=== PATIENT | female | born 1955 | race Caucasian/White ===

== ENCOUNTER 2019-07-14 09:26 | Outpatient (CLI) | payer OTHER, SELFPAY ==
--- NOTE | ~2019-07-14 | MM_ITS ---
EXAMINATION: MM screening albert RT w tone HISTORY: Screening mammogram TECHNIQUE: Craniocaudal and mediolateral oblique 3-D tomosynthesis images were obtained and synthetic 2-D images were generated. CAD analysis was submitted and interpreted. COMPARISON: 02/21/2018 right digital screening mammogram 02/14/2017 diagnostic right mammogram 02/11/2017 right digital screening mammogram BREAST PARENCHYMAL COMPOSITION: There are scattered areas of fibroglandular density. FINDINGS: Possible new 3 mm mass in inner right breast (craniocaudal Tomosynthesis image 28/84). Diag nostic right mammogram is recommended, with ultrasound if required. Otherwise there is no evidence of suspicious mass, calcification, or architectural distortion to sugg est malignancy in either breast. There has been no other suspicious interval change. IMPRESSION: 1. Possible new 3 mm mass in the inner aspect of the right breast 2. Diagnostic right mammogram is recommended, with ultrasound if required. BI-RADS Category 0: Incomplete: Needs additional imaging evaluation. Reviewed, dictated and finalized at location A. STITCHER
== END 2019-07-14 09:27 | disposition home or self-care (01) ==
LOC: ANHIMG 09:31
PROVIDERS: Visit Provider Obstetrics & Gynecology
DX: Z12.31 Encounter for screening mammogram for malignant neoplasm of breast (principal); R92.8 Other abnormal and inconclusive findings on diagnostic imaging of breast
CPT/HCPCS: 77063; 77067

== ENCOUNTER 2019-08-06 13:16 | Outpatient (CLI) | payer OTHER, SELFPAY ==
--- NOTE | ~2019-08-06 | MMUS_ITS ---
EXAMINATION: MM diagnostic mammo unilat RT, US breast RT limited HISTORY: Follow-up right breast asymmetry TECHNIQUE: Additional 3-D tomosynthesis images of the right breast were performed and synthetic 2-D i mages were generated. CAD analysis was submitted and interpreted. High resolution right breast ultras ound was performed. COMPARISON: Comparison to multiple prior studies sequentially, with oldest reviewed study dated 01/18. FINDINGS: MAMMOGRAPHIC FINDINGS: Breast composed of scattered areas of fibroglandular density. The right breast is stable. No suspicio us masses, calcifications or architectural distortion are identified in the right breast to suggest m alignancy. ULTRASOUND: High-resolution Limited right breast ultrasound: At 4:00, 4 cm from the nipple, there is a small 4 mm intramammary lymph node corresponding to the asy mmetry seen on mammogram. No suspicious masses to suggest malignancy. IMPRESSION: 1. No evidence for malignancy in the right breast. Benign findings. 2. Routine yearly screening mammogram and regular clinical breast examination are recommended. BI-RADS Category 2: Benign finding(s). Reviewed, dictated and finalized at location A. T SECURITY OFFICER IMPRESSION: 1. No evidence for malignancy in the right breast. Benign findings. 2. Routine yearly screening mammogram and regular clinical breast examination a re recommended. BI-RADS Category 2: Benign finding(s).
== END 2019-08-06 13:17 | disposition home or self-care (01) ==
LOC: ANHIMG 13:18
PROVIDERS: Visit Provider Obstetrics & Gynecology
DX: R92.8 Other abnormal and inconclusive findings on diagnostic imaging of breast (principal)
CPT/HCPCS: 76642; 77065

== ENCOUNTER 2020-09-19 09:20 | Outpatient (CLI) | payer OTHER, SELFPAY ==
--- NOTE | ~2020-09-19 | MM_ITS ---
EXAMINATION: MM screening albert RT w tone HISTORY: Screening right mammogram, history of left mastectomy TECHNIQUE: Craniocaudal and mediolateral oblique 3-D tomosynthesis images were obtained and synthetic 2-D images were generated. CAD analysis was submitted and interpreted. COMPARISON: 08/06/2019, 07/14/2019, 02/21/2018 BREAST PARENCHYMAL COMPOSITION: The breast is almost entirely fatty. FINDINGS: There is no evidence of suspicious mass, calcification, or architectural distortion to sugg est malignancy in either breast. There has been no suspicious interval change. IMPRESSION: 1. No mammographic evidence of malignancy. 2. Recommend routine screening mammography in one year. BI-RADS Category 1: Negative Reviewed, dictated and finalized at location A.
== END 2020-09-19 09:21 | disposition home or self-care (01) ==
LOC: ANHIMG 09:24
PROVIDERS: PCP Internal Medicine; Visit Provider Obstetrics & Gynecology
DX: Z12.31 Encounter for screening mammogram for malignant neoplasm of breast (principal)
CPT/HCPCS: 77063; 77067

== ENCOUNTER 2021-07-24 09:53 | Outpatient (CLI) | payer MEDICARE, SELFPAY ==
[2021-07-24 11:18] LABS: Anion Gap 11 mmol/L (8-16); Blood Urea Nitrogen 19 mg/dL (7-17); Calcium 9.4 mg/dL (8.4-10.2); Carbon Dioxide 22 mmol/L (22-30); Chloride 107 mmol/L (98-107); Estimated Glomerular Filt Rate > 60; Glucose 110 mg/dL (65-110); Potassium 3.6 mmol/L (3.4-5.0); Sodium 140 mmol/L (137-145)
== END 2021-07-24 09:54 | disposition home or self-care (01) ==
LOC: ANHSURGERY 10:00
PROVIDERS: Anesthesiology; PCP Internal Medicine; Visit Provider Urology
DX: N39.3 Stress incontinence (female) (male) (principal); Z79.899 Other long term (current) drug therapy; Z01.818 Encounter for other preprocedural examination
CPT/HCPCS: 36415; 80048; 87086

== ENCOUNTER 2021-07-28 00:45 | Day surgery (SDC) | payer MEDICARE, SELFPAY ==
[2021-07-19 09:18] VITALS: BMI 32.4
--- NOTE | 2021-07-19 09:28 | PC.NURSE ---
Report to the Outpatient Waiting Room, entrance under the green pavilion located off [facility], at time 6:15 on date 07/28/21. OR Time: 8:15. - You and your visitor will be asked a series of questions to screen for COVID 19 for your protection. - A mask is required within the hospital. One visitor will be allowed to accompany the patient into the hospital. Patients visitor will be instructed to remain with patient at all times or leave the building. We will allow the visitor to come back to the postoperative area when patient is ready. Preoperative COVID Testing Requirements: No COVID Test needed if: (proof is required; if not received patient will have Rapid Test prior to entry) - Patient has received COVID Vaccine at least 14 days prior to procedure date or - Patient has positive COVID test result within last 90 days of surgery date. COVID Test needed if above criteria is not met Patients may have clear liquids (water, carbonated beverages, clear teas, apple juice) until 3 hours prior to surgery (5:15) with a maximum of 20 ounces. - No food from midnight until time of surgery Take the following medications with a SIP of water the morning of surgery: LEVOTHYROXINE, TAMOXIFEN Medications to discontinue per physician: VITAMINS/SUPPLEMENTS Date to take last dose: 07/24/21 Please no make-up, nail congolese, hairspray, perfume, deodorant, or body powder the day of surgery. No jewelry (including any body piercings) or valuables the day of surgery, leave them at home. Please take a shower or bath the night before, or the morning of, surgery with an antibacterial soap. Wear comfortable, loose fitting clothing. - Jewelry must be removed prior to entering the operating room. Rings and piercings that are not removed may be cut off. - The hospital will not accept responsibility for valuables. - Please leave all valuables, including medications, at home the day of surgery. If you are going home after surgery, a licensed mixer driver must drive you home. - NO public transportation without another adult. - We recommend that an adult stay with you for 24 hours following discharge. - We also recommend that you do not drive, make important decision, drink alcoholic beverages, or take any drugs that were not prescribed by your health care provider for at least 24 hours after your discharge time. Follow any additional instructions given to you from your surgeon. Telephone instructions given to SANTOSH HCASE and asked if any additional questions and then verbalized understanding. Patient advised to call surgeon office or pre surgery nurse liaison [phone] if any additional questions.
--- NOTE | 2021-07-23 19:14 | P.HP_ITS ---
H&P: HPI History of Present Illness Date/Time: 07/23/21 19:14 66 yo with RORO Chief Complaint: RORO Review of Systems Review of Systems: All systems reviewed & are unremarkable except as noted in HPI and below FOR[facility], [facility] Past Medical History Medical History Acid reflux Allergies Arthritis Breast cancer 2010, left breast Hypertension IBS (irritable bowel syndrome) Thyroid disorder Surgical History Surgical History H/O hand surgery S/P breast reconstruction left breast S/P foot surgery S/P knee replacement S/P mastectomy left breast S/P reduction mammoplasty left breast Family History Family History Grandparent Family history of malignant melanoma Mother Family history of malignant neoplasm of breast in first degree relative Father Family history of congestive heart failure Other Family history of lung cancer Social History Social History Smoking status: Never smoker Alcohol intake: current Drinks per week: 4 Substance use: never Substance use type: does not use Spiritual care concerns: No Meds Home Medications and Allergies Home Medications Medication Instructions Recorded Confirmed Type atorvastatin 10 mg tablet 10 mg PO DAILY 12/07/20 07/19/21 History cholecalciferol (vitamin D3) 10 10 mcg PO DAILY 12/07/20 07/19/21 History mcg (400 unit) tablet cyanocobalamin (vitamin B-12) 1,000 mcg PO DAILY 12/07/20 07/19/21 History 1,000 mcg capsule estradiol 1 g VAGINAL 3XW #42.5 g 12/07/20 07/19/21 Rx fluticasone propionate 50 1 spray INTRANASAL DAILY 12/07/20 07/19/21 History mcg/actuation nasal spray,suspension levothyroxine 100 mcg tablet 100 mcg PO DAILY 12/07/20 07/19/21 History meclizine 25 mg tablet 25 mg PO BID PRN 12/07/20 07/19/21 History montelukast 10 mg tablet 10 mg PO DAILY 12/07/20 07/19/21 History tamoxifen 20 mg tablet 20 mg PO DAILY 12/07/20 07/19/21 History spironolactone 25 mg PO DAILY 07/19/21 07/19/21 History Allergies Allergy/AdvReac Type Severity Reaction Status Date / Time No Known Allergies Allergy Verified 07/19/21 09:16 Exam Narrative: NAD A+O x3 normal breathing + urethral mobility Assessment and Plan Assessment and plan (1) RORO (stress urinary incontinence, female): Code(s): N39.3 - Stress incontinence (female) (male) Status: Acute Assessment and Plan: urethral sling
[2021-07-28 06:54] VITALS: BP 127/66; PULSE 78; RESP 18; O2SAT 97; BMI 31.6
[2021-07-28 06:58] VITALS: TEMP 37
--- NOTE | 2021-07-28 07:07 | WPDHPUPDATE1 ---
History and Physical Update Update Date/Time: 07/28/21 07:07 History and Physical has been reviewed, including an updated exam of the patient. There are NO changes in the patient's condition. Risks, benefits, and alternatives have been discussed and questions answered. Patient agrees to proceed with procedure.
[2021-07-28] MEDS: LACTATED RINGERS 1,000 ML 30 ML IV CONT (07:10)
--- NOTE | 2021-07-28 07:21 | WPDANESEPPF ---
Anes - Initial Pre Proc Eval Procedure: Operation Date: 07/28/21 08:15 Proposed Procedures p Urethral Sling - Conor Morse MD Date/Time: 07/28/21 07:21 Surgeon: Conor Morse MD Pre Op Diagnosis: stress incontinence Patient Data Age: 66 Gender: F Height: 1.65 m Weight: 86.4 kg Last Vital Signs Temp 37.0 C 07/28/21 06:58 Pulse 78 07/28/21 06:54 Resp 18 07/28/21 06:54 BP 127/66 07/28/21 06:54 Pulse Ox 97 07/28/21 06:54 Allergies Allergy/AdvReac Type Severity Reaction Status Date / Time No Known Allergies Allergy Verified 07/28/21 07:00 Home Medications Medication Instructions Recorded Confirmed Type atorvastatin 10 mg tablet 10 mg PO DAILY 12/07/20 07/28/21 History cholecalciferol (vitamin D3) 10 10 mcg PO DAILY 12/07/20 07/28/21 History mcg (400 unit) tablet cyanocobalamin (vitamin B-12) 1,000 mcg PO DAILY 12/07/20 07/28/21 History 1,000 mcg capsule estradiol 1 g VAGINAL 3XW #42.5 g 12/07/20 07/28/21 Rx fluticasone propionate 50 1 spray INTRANASAL DAILY 12/07/20 07/28/21 History mcg/actuation nasal spray,suspension levothyroxine 100 mcg tablet 100 mcg PO DAILY 12/07/20 07/28/21 History meclizine 25 mg tablet 25 mg PO BID PRN 12/07/20 07/28/21 History montelukast 10 mg tablet 10 mg PO DAILY 12/07/20 07/28/21 History tamoxifen 20 mg tablet 20 mg PO DAILY 12/07/20 07/28/21 History spironolactone 25 mg PO DAILY 07/19/21 07/28/21 History Patient hx anesthesia problems: none Family hx anesthesia problems: none Results Review: All pre-operative results and documents have been reviewed as part of the pre-operative evaluation. [facility] Past Medical History Medical History Acid reflux Allergies Arthritis Breast cancer 2010, left breast Hypertension IBS (irritable bowel syndrome) Thyroid disorder Surgical History Surgical History H/O hand surgery S/P breast reconstruction left breast S/P foot surgery S/P knee replacement S/P mastectomy left breast S/P reduction mammoplasty left breast Family History Family History Grandparent Family history of malignant melanoma Mother Family history of malignant neoplasm of breast in first degree relative Father Family history of congestive heart failure Other Family history of lung cancer Social History Social History Smoking status: Never smoker Alcohol intake: current Drinks per week: 4 Substance use: never Substance use type: does not use Living arrangements: with family Spiritual care concerns: No Anes - Eval Final PreProcedure Day of Procedure 07/28/21 07:21 Patient weight: obese Heart: regular rate and rhythm Lungs: clear to auscultation Airway: Mallampati scale class II Neurological: alert and oriented Last oral intake: >/= 8 hours ASA classification: III Emergent: no Anesthetic plan: proceed Anesthesia type and monitoring: general GIVS and standard monitoring Results Review: All pre-operative results and documents have been reviewed as part of the pre-operative evaluation. Informed Consent: The patient's anesthetic plan and its attendant risks and benefits were discussed with the patient/family/POA. Questions were solicited and answers provided to the satisfaction of the patient/family/POA.
[2021-07-28] MEDS: ceFAZolin 2 GM/D5W 50 ML 2 GM/50 ML BAG IVPB (08:08)
[2021-07-28] MEDS: BUPIVACAINE/EPINEPHRINE 0.25% 10 ML VIAL INFILTRATE (08:20)
--- NOTE | 2021-07-28 08:38 | W.PM.PROC2 ---
Procedure Note - Detailed Date of Procedure 07/28/21 Pre-op Diagnosis stress incontinence Post-op Diagnosis same Procedure Performed mid urethral sling cystoscopy Surgeon Conor Morse MD Indications This is a female with confirm stress urinary incontinence. She desires surgical correction. She understands the risks of bleeding, infection, injury to the urinary tract, vaginal mesh extrusion, urinary tract mesh erosion, obstructive voiding requiring a secondary procedure, hip and leg pain, dyspareunia, inability to improve overactive bladder symptoms. She agrees to proceed. Description of Procedure She was correctly identified. Informed consent obtained. She was brought the operating room. She was given appropriate anesthesia. She was given appropriate perioperative antibiotics. A time-out performed. I marked out the site of the inner thigh incisions. I anesthetized the skin and made those incisions. I anesthetized the anterior vaginal wall over the mid urethra. I made a 1 cm incision. I dissected out laterally taking great care not to injure the refilled vaginal wall. I passed the helical trocars. First on the left. Then on the right. I did this from the thigh incision towards the vaginal incision. The sling was connected to the trocars and brought out through the thigh incision. I tensioned the sling appropriately. I cut and the plastic sheaths. I then closed the incision with 2 0 Vicryl. On cystoscopy there is no tumors or surgical artifact. There was no surgical artifact in the urethra. I cut the excess sling material. Close incisions with glue. She was awakened and transferred to the PACU in stable condition. Implants Urethral sling Drains No Packing No Pathology none sent Complications No immediate complications Condition stable Disposition PACU
[2021-07-28 08:39] VITALS: BP 124/64; PULSE 80; RESP 12; O2SAT 97
[2021-07-28 09:09] VITALS: BP 123/65; PULSE 78; RESP 12
--- NOTE | 2021-07-28 09:21 | SUR.PHASEII ---
pt voided without issue.
[2021-07-28 09:30] VITALS: BP 129/82; PULSE 78; RESP 12
== END 2021-07-28 09:40 | disposition home or self-care (01) ==
PROVIDERS: PCP Internal Medicine; Visit Provider Urology
PROC: (CPT 57288; principal; 2021-07-28 08:15)
DX: N39.3 Stress incontinence (female) (male) (principal); K21.9 Gastro-esophageal reflux disease without esophagitis; K58.9 Irritable bowel syndrome, unspecified; E07.9 Disorder of thyroid, unspecified; Z85.3 Personal history of malignant neoplasm of breast; Z90.12 Acquired absence of left breast and nipple; Z79.810 Long term (current) use of selective estrogen receptor modulators (SERMs); E66.9 Obesity, unspecified; Z68.31 Body mass index [BMI] 31.0-31.9, adult
CPT/HCPCS: 57288; 36415; 80048; 87086; A9270; C1771; J0690; J1885; J2704; J3010; J7030; J7120

== ENCOUNTER 2022-05-17 08:40 | Outpatient (CLI) | payer MEDICARE, SELFPAY ==
--- NOTE | ~2022-05-17 | MM_ITS ---
EXAMINATION: MM screening albert RT w tone HISTORY: Screening TECHNIQUE: Craniocaudal and mediolateral oblique 3-D tomosynthesis images were obtained and synthetic 2-D images were generated. CAD analysis was submitted and interpreted. COMPARISON: Comparison to multiple prior studies sequentially, with oldest reviewed study dated 02/11. BREAST PARENCHYMAL COMPOSITION: There are scattered areas of fibroglandular density. FINDINGS: There is no evidence of suspicious mass, calcification, or architectural distortion to sugg est malignancy in the right breast. There has been no suspicious interval change. IMPRESSION: 1. No mammographic evidence of malignancy. 2. Recommend routine screening mammography in one year. BI-RADS Category 1: Negative Reviewed, dictated and finalized at location B. MOBILE DEVELOPER
== END 2022-05-17 08:41 | disposition home or self-care (01) ==
PROVIDERS: PCP Internal Medicine; Visit Provider Physician Assistant
DX: Z12.31 Encounter for screening mammogram for malignant neoplasm of breast (principal)
CPT/HCPCS: 77063; 77067

== ENCOUNTER 2023-09-18 09:28 | Outpatient (CLI) | payer MEDICARE, SELFPAY ==
--- NOTE | ~2023-09-18 | MM_ITS ---
EXAMINATION: MM screening albert RT w tone HISTORY: Screening TECHNIQUE: Craniocaudal and mediolateral oblique 3-D tomosynthesis images were obtained and synthetic 2-D images were generated. CAD analysis was submitted and interpreted. COMPARISON: Comparison to multiple prior studies sequentially, with oldest reviewed study dated 02/14. BREAST PARENCHYMAL COMPOSITION: There are scattered areas of fibroglandular density. FINDINGS: There is no evidence of suspicious mass, calcification, or architectural distortion to sugg est malignancy in the right breast. There has been no suspicious interval change. IMPRESSION: 1. No mammographic evidence of malignancy. 2. Recommend routine screening mammography in one year. BI-RADS Category 1: Negative Reviewed, dictated and finalized at location B.
== END 2023-09-18 09:29 | disposition home or self-care (01) ==
LOC: ANHIMG 09:30
PROVIDERS: PCP Physician Assistant; Visit Provider Physician Assistant
DX: Z12.31 Encounter for screening mammogram for malignant neoplasm of breast (principal)
CPT/HCPCS: 77063; 77067

== ENCOUNTER 2024-12-16 07:58 | Outpatient (CLI) | payer MEDICARE, SELFPAY ==
--- NOTE | ~2024-12-16 | MM_ITS ---
EXAMINATION: MM screening albert RT w tone HISTORY: Screening. Status post left mastectomy. TECHNIQUE: Craniocaudal and mediolateral oblique 3-D tomosynthesis images were obtained and synthetic 2-D images were generated. CAD analysis was submitted and interpreted. COMPARISON: Comparison to multiple prior studies sequentially, with oldest reviewed study dated 02/21. BREAST PARENCHYMAL COMPOSITION: Not Dense: The breasts are almost entirely fatty. FINDINGS: There is no evidence of suspicious mass, calcification, or architectural distortion to sugg est malignancy in the right breast. There has been no suspicious interval change. IMPRESSION: 1. No mammographic evidence of malignancy. 2. Recommend routine screening mammography in one year. BI-RADS Category 1: Negative Reviewed, dictated and finalized at location B.
--- OUTSIDE RECORDS SUMMARY | 2024-12-16 08:03 | XMS_ITS | Encounter Summary ---
Author Organization [facility] Address [address] [place] [address] Care Team Providers Care Digital Sales Executive Name Role Phone Fadi Thomas MD Primary Care Provi carol Fadi Thomas MD Primary Care Provi carol Fadi Thomas MD Primary Care Provi carol Fadi Thomas MD Primary Care Provi carol Yesenia Miranda PT Unavailable Unavailable Lucinda Dao CORE MAKER HELPER Unavailable Unavailable Fadi Vick DO Unavailable [phone] Alirio Delcid Primary Care Provider Encounter Details Date Type Department Care Team (Late st Contact Info) Description 04/08/2007 Orders Only [facility] [address] [place] [id number] Fadi Thomas MD [address] [facility] [place] [address] Social History Tobacco Use Types Packs/Day Years Used Date Smoking Tobacco: Never Assessed Comments Unknown Sex and Gender Information Value Date Recorded Sex Assigned at Not on file Legal Sex Female 11:55 PM PHLEBOTOMY DIRECTOR Gender Identity Not on file Sexual Orientation Not on file documented as of this encounter Plan of Treatment Not on file documented as of this encounter Procedures Procedure Name Priority Date/Time Associated Diagnosis Comments COLONOSCOPY Routine 04/08/2007 documented in this encounter Results * Colonoscopy (04/08/2007) Anatomical Region Laterality Modality Other us Historical Provider ENDOSCOPY PROCEDURES Inna l Result documented in this encounter Visit Diagnoses Not on filedocumented in this encounter Care Teams Digital Sales Executive Relationship Specialty Start Date End Date Fadi Thomas MD PCP - General 08/31/16 01/31/22 Fadi Thomas MD PCP - General 11/26/12 08/30/16 Fadi Thomas MD PCP - General 06/21/09 11/25/12 Fadi Thomas MD PCP - General 08/26/06 06/20/09 Alirio Delcid PA [address] [place] [id number] PCP - General Internal Medicine 02/01/22 Yesenia Miranda, PT Physical Therapist Physical Therapy 10/15/17 10/23/23 Lucinda Dao, CORE MAKER HELPER Security Shift Manager Physical Therapy 10/22/17 10/23/23 Fadi Vick DO [address] [place] [id number] Medical Oncologist/Principal Software Engineer Hematology and Oncology 04/30/18 10/23/23 documented as of this encounter
--- OUTSIDE RECORDS SUMMARY | 2024-12-16 08:03 | XMS_ITS | Referral Summary ---
Author Organization [facility] Medical Office Building A Address [address] [place] [address] Care Team Providers Care Medical Record Retrieval Specialist Name Role Phone Alirio Delcid Primary Care Provider Encounters Date Type Department Care Team Description 10/16/2024 2:30 PM CDT Office Visit [facility] Surgery [id number] [place] [address] Medical Office Building [address] [place] [address] Darlin Sierra MD Trigger middle finger of left hand (Primary Dx) from Last 3 Months Allergies No known active allergies Medications loratadine (CLARITIN) 10 mg tablet Take 1 tablet (10 mg total) by mouth daily Active cholecalcifero l (VITAMIN D-3) 2000 unit capsule 1 capsule (2,000 Units total) Active cyanocobalamin , vitamin B-12, 250 mcg lozenge Take 500 Units by mouth daily Active pantoprazole DR (PROTONIX) 20 mg EC tablet Take 1 tablet (20 mg total) by mouth daily 90 tablet 3 10/24/19 24 Active spironolactone -hydroCHLOROth iazide (ALDACTAZIDE) 25-25 mg per tablet Take 1 tablet by mouth daily 90 tablet 3 03/05/20 24 Active atorvastatin (LIPITOR) 20 mg tablet Take 1 tablet (20 mg total) by mouth daily 90 tablet 4 03/05/20 24 025 Active oxyBUTYnin XL (DITROPAN-XL) 5 mg 24 hr tablet Take 1 tablet (5 mg total) by mouth nightly 90 tablet 3 03/05/20 24 Active lisinopriL (PRINIVIL,ZEST RIL) 5 mg tablet Take 1 tablet (5 mg total) by mouth daily 90 tablet 04/28/20 24 025 Active levothyroxine (SYNTHROID) 100 mcg tablet Take 1 tablet by mouth once daily 90 tablet 3 05/22/20 24 Active cyclobenzaprin e (FLEXERIL) 10 mg tablet Take 1 tablet (10 mg total) by mouth 3 (three) times a day as needed for muscle spasms 90 tablet 09/04/19 25 Active meclizine (ANTIVERT) 25 mg tablet Take 1 tablet (25 mg total) by mouth 3 (three) times a day as needed for dizziness vertigo 60 tablet 3 09/04/19 25 Active fluticasone propionate (FLONASE) 50 mcg/actuation nasal spray Use 2 spray(s) in each nostril once daily 16 g 12/15/19 25 Active fluticasone propionate (FLONASE) 50 mcg/actuation nasal spray Administer 2 sprays into each nostril daily 16 g 06/17/19 24 025 Discontinued Active Problems Problem Noted Date Diagnosed Date Cervical neck pain with evidence of disc disease 09/26/2022 Assessment & Plan (09/26/2022 1:06 PM CDT): Ordered x-ray Order cyclobenzaprine Consult for pain management-Dr. Doe-has seen in past Vitamin D deficiency 01/24/2022 Overview (01/24/2022): On supplement and recheck level before next visit Stress incontinence of urine 05/24/2020 Assessment & Plan (11/09/2020 10:05 AM CDT): Ditropan dry mouth and not Helping and refer back to it corporate recruiter and se what they can offer and find and then they can refer if no help or we can Assessment & Plan (05/24/2020 4:11 PM COLOR PRINTER OPERATOR): On ditropan and not seemingly helping much can try to double and take 10 instead of 5 and if rfeels tolerable and Helps then call for a 10 mg dose and if not then stop it. PE (physical exam), annual 07/03/2019 Assessment & Plan (03/05/2024 12:51 PM CDT): Discussed routine screenings and vaccines Assessment & Plan (11/09/2020 10:08 AM CDT): Up to date on colon and albert. Had flu and covid shots. Had shingles shot series. And consider a tetunus update. Check bmd on retrurn Assessment & Plan (07/03/2019 9:42 AM COLOR PRINTER OPERATOR): Will order cologouard given recent knee surg and increased risk from it Hypokalemia 03/02/2019 Assessment & Plan (05/11/2021 9:18 AM COLOR PRINTER OPERATOR): k 3.,6 and shold drif uop a little with adrienne Assessment & Plan (11/09/2020 10:02 AM CDT): k 3.7 and stoppoing k and starting aldactone with hctcz and should take care of Assessment & Plan (03/02/2019 3:34 PM CDT): droped more then would of thought restart full tab 20 and check in d aydss Primary osteoarthritis of left knee 02/18/2019 Overview (02/18/2019): Added automatically from request for surgery [id number] Arthralgia of left knee 02/11/2018 Assessment & Plan (02/11/2018 10:17 AM CDT): Continue to see orthopedist for injections and further management. Reinforced avoiding use of any NSAIDs 1 week prior to surgery History of left breast cancer 01/23/2018 Cancer Staging:Clinical stage from 04/05/2011:Stage IIIA(cT1c, cN2a, cM0, G2, ER: Positive, NV: Negative, HER2: Negative) - Unsigned Assessment & Plan (11/09/2020 10:04 AM CDT): Active rx abd see;s ibic fir Acquired hypothyroidism 04/11/2017 Assessment & Plan (09/20/2021 10:10 AM CDT): Keep meds same and check tsh on return with well exam Assessment & Plan (05/11/2021 9:17 AM COLOR PRINTER OPERATOR): tsh on return and keep meds samew Assessment & Plan (11/09/2020 10:03 AM CDT): tsh at 1.3 and keep thyroid dose the same check yr'ly Assessment & Plan (05/24/2020 4:08 PM COLOR PRINTER OPERATOR): chec tsh on reutrn Assessment & Plan (07/03/2019 9:34 AM COLOR PRINTER OPERATOR): Check thyroid on return Assessment & Plan (09/18/2018 11:13 AM CDT): On meds and last yr good and check on nov labs Assessment & Plan (02/11/2018 10:15 AM CDT): Last TSH in September was 1.55 indicating euthyroid. Continue Synthroid 100 mcg q.day Assessment & Plan (01/23/2018 10:36 AM CDT): On Synthroid 100, last TSH in September was 1.55 and within normal limits Assessment & Plan (10/09/2017 10:32 AM CDT): tsh nl and no changs. Check yr'ly. Assessment & Plan (04/11/2017 11:14 AM COLOR PRINTER OPERATOR): Check on return Hair loss 04/11/2017 Assessment & Plan (04/11/2017 11:19 AM COLOR PRINTER OPERATOR): Low thyroid can do but last ws nl and saroj not expect it to drop on meds. Breast cancer rx and supression can play a role and check with onc bout. The otc supplement shodlnot be issue and some find them helpful. Would not see thme interacting in tamoxifen but can bring Product in to review wit me oconnell. Environmental and seasonal allergies 02/06/2017 Assessment & Plan (02/06/2017 10:59 AM CDT): Trial singulair and see if can see a difference. Many see a makred help and there are some that it really doesn't make a difference. So after a monoth if not any different then s top. Gastroesophageal reflux disease 10/17/2013 Overview (09/05/2016): ESOPHAGEAL REFLUX Assessment & Plan (11/09/2020 10:06 AM CDT): contorlled but there Assessment & Plan (09/18/2018 11:16 AM CDT): Well controlled on meds Benign hypertension 10/17/2013 Overview (09/07/2016): BENIGN HYPERTENSION Assessment & Plan (09/03/2024 9:18 AM CDT): Recommend DASH diet, heart healthy lifestyle, exercise. Discussed the risks of hypertension. Assessment & Plan (03/05/2024 12:51 PM CDT): Recommend DASH diet, heart healthy lifestyle, exercise. Discussed the risks of hypertension. Assessment & Plan (10/24/2023 7:41 AM CDT): Recommend DASH diet, heart healthy lifestyle, exercise. Discussed the risks of hypertension. Assessment & Plan (06/16/2023 2:44 PM COLOR PRINTER OPERATOR): Recommend DASH diet, heart-healthy lifestyle, exercise. Discussed the risks of hypertension. Assessment & Plan (02/14/2023 7:14 AM CDT): Recommend DASH diet, heart healthy lifestyle, exercise. Discussed the risks of hypertension. Assessment & Plan (10/25/2022 7:16 AM CDT): Recommend DASH diet, heart healthy lifestyle, exercise. Discussed the risks of hypertension. Assessment & Plan (06/27/2022 8:03 AM COLOR PRINTER OPERATOR): Recommend DASH diet, heart-healthy lifestyle, exercise. Discussed the risks of hypertension. Assessment & Plan (01/24/2022 8:05 AM CDT): Recommend DASH diet, heart healthy lifestyle, exercise. Discussed the risks of hypertension. Assessment & Plan (09/20/2021 10:10 AM CDT): The bp good and keep meds same And bp dropeed with wt and meds and keep same Hypertension, Medical treament revolves around weight control, salt management, and meds when necessary. long as weight loss is necessary and you are able to drop weight we can cont to monitor the blood pressure and not add meds. Once the weight is not changing then it becomes nesessary to add meds to be able to reach the goal bp. Assessment & Plan (05/11/2021 9:14 AM COLOR PRINTER OPERATOR): bp on high side serialy with k 3.6 and on aldactazide will add lisinopril 2.25 nd grfad work upHypertension, Medical treament revolves around weight control, salt management, and meds when necessary. long as weight loss is necessary and you are able to drop weight we can cont to monitor the blood pressure and not add meds. Once the weight is not changing then it becomes nesessary to add meds to be able to reach the goal bp. Assessment & Plan (11/09/2020 10:01 AM CDT): htn touvcho high and k 3.7 will replace kcl 20 and hctz 25 with aldacazide 25/25 and see if touch better bp and k stays upHypertension, Medical treament revolves around weight control, salt management, and meds when necessary. long as weight loss is necessary and you are able to drop weight we can cont to monitor the blood pressure and not add meds. Once the weight is not changing then it becomes nesessary to add meds to be able to reach the goal bp. Assessment & Plan (05/24/2020 4:07 PM COLOR PRINTER OPERATOR): bp b abdi and sandra see if stays down enough or not no chvads for todayHypertension, Medical treament revolves around weight control, salt management, and meds when necessary. long as weight loss is necessary and you are able to drop weight we can cont to monitor the blood pressure and not add meds. Once the weight is not changing then it becomes nesessary to add meds to be able to reach the goal bp. Assessment & Plan (11/04/2019 9:17 AM CDT): Recommend DASH diet, heart-healthy lifestyle, exercise. Discussed the risks of hypertension. Assessment & Plan (07/03/2019 9:37 AM COLOR PRINTER OPERATOR): The bp on upper limits of nl on 12.5 hctz and go to 35 and if drops 7 lbs or more then try currentling back to 12.5Hypertension, Medical treament revolves around weight control, salt management, and meds when necessary. long as weight loss is necessary and you are able to drop weight we can cont to monitor the blood pressure and not add meds. Once the weight is not changing then it becomes nesessary to add meds to be able to reach the goal bp. Assessment & Plan (10/31/2018 12:22 PM CDT): Recommend DASH diet, heart-healthy lifestyle, exercise. Discussed the risks of hypertension. Assessment & Plan (09/18/2018 11:13 AM CDT): Add lisinopril 2.5 to the hctz and see bp effect and adjust up as needed to controlHypertension, Medical treament revolves around weight control, salt management, and meds when necessary. long as weight loss is necessary and you are able to drop weight we can cont to monitor the blood pressure and not add meds. Once the weight is not changing then it becomes nesessary to add meds to be able to reach the goal bp. Assessment & Plan (02/11/2018 10:15 AM CDT): Blood pressure stable in office today. Pt was advised of continuing heart healthy DASH diet, increase exercise as tolerated, and continuing to monitor for any lower leg edema, headaches, changes in vision, or facial flushing. Continue anti-hypertensives as prescribed. Assessment & Plan (10/09/2017 10:32 AM CDT): .bp high ok here and check awqy and confirm less all timeHypertension, Medical treament revolves around weight control, salt management, and meds when necessary. long as weight loss is necessary and you are able to drop weight we can cont to monitor the blood pressure and not add meds. Once the weight is not changing then it becomes nesessary to add meds to be able to reach the goal bp. Assessment & Plan (04/11/2017 11:13 AM COLOR PRINTER OPERATOR): The bp drooped with meds. Potassium good and salt leel nl. Wt will drove bpp up or down. For now did drop some and pending that willnot changes meds. Hypertension, Medical treament revolves around weight control, salt management, and meds when necessary. long as weight loss is necessary and you are able to drop weight we can cont to monitor the blood pressure and not add meds. Once the weight is not changing then it becomes nesessary to add meds to be able to reach the goal bp. Assessment & Plan (02/06/2017 10:57 AM CDT): bp high and was borderline last and with wt up thisis likely the driving force. Will start low dose hctz andsee effect. Hypertension, Medical treament revolves around weight control, salt management, and meds when necessary. long as weight loss is necessary and you are able to drop weight we can cont to monitor the blood pressure and not add meds. Once the weight is not changing then it becomes nesessary to add meds to be able to reach the goal bp. Hyperlipidemia 10/17/2013 Overview (09/07/2016): HYPERLIPIDEMIA NEC/NOS Assessment & Plan (09/03/2024 9:18 AM CDT): Counseled on heart healthy diet exercise Assessment & Plan (03/05/2024 12:51 PM CDT): Counseled on heart healthy diet exercise Assessment & Plan (10/24/2023 7:41 AM CDT): Counseled on heart healthy diet and exercise Assessment & Plan (09/20/2021 10:12 AM CDT): ldl at 84 and keep here unless higher risk Your cholesterol in the form of ldl (bad) cholesterol,hdl(good) cholesterol and triglycerides are monitored. The triglycerides respond to reduction/controll of your simple carbs/sugars In such items as sugared soda/sweet tea along with fruit juices(containing natural sugar) even if no added sugar is added. LDL cholesterol is reduced with reducing daily intake of fats and polo. saturated fats. The monosaturated fats like olive oil are not harmful except in the calories they contained. Whole milk cheese needs to be remembered along with whole milk products And limited. Assessment & Plan (05/11/2021 9:15 AM COLOR PRINTER OPERATOR): ldl back down to 70 and great. kep here Your cholesterol in the form of ldl (bad) cholesterol,hdl(good) cholesterol and triglycerides are monitored. The triglycerides respond to reduction/controll of your simple carbs/sugars In such items as sugared soda/sweet tea along with fruit juices(containing natural sugar) even if no added sugar is added. LDL cholesterol is reduced with reducing daily intake of fats and polo. saturated fats. The monosaturated fats like olive oil are not harmful except in the calories they contained. Whole milk cheese needs to be remembered along with whole milk products And limited. Assessment & Plan (11/09/2020 10:02 AM CDT): ldl up to 97 and trig stable I mid 200 at 246 no changfs unless climbs more or higher riskYour cholesterol in the form of ldl (bad) cholesterol,hdl(good) cholesterol and triglycerides are monitored. The triglycerides respond to reduction/controll of your simple carbs/sugars In such items as sugared soda/sweet tea along with fruit juices(containing natural sugar) even if no added sugar is added. LDL cholesterol is reduced with reducing daily intake of fats and polo. saturated fats. The monosaturated fats like olive oil are not harmful except in the calories they contained. Whole milk cheese needs to be remembered along with whole milk products And limited. Assessment & Plan (05/24/2020 4:07 PM COLOR PRINTER OPERATOR): ldl at 69 and good for nwo no neena inmedsYour cholesterol in the form of ldl (bad) cholesterol,hdl(good) cholesterol and triglycerides are monitored. The triglycerides respond to reduction/controll of your simple carbs/sugars In such items as sugared soda/sweet tea along with fruit juices(containing natural sugar) even if no added sugar is added. LDL cholesterol is reduced with reducing daily intake of fats and polo. saturated fats. The monosaturated fats like olive oil are not harmful except in the calories they contained. Whole milk cheese needs to be remembered along with whole milk products And limited. Assessment & Plan (07/03/2019 9:38 AM COLOR PRINTER OPERATOR): ldl at 100 and cont meds as on unless risk climbs then push for lower.Your cholesterol in the form of ldl (bad) cholesterol,hdl(good) cholesterol and triglycerides are monitored. The triglycerides respond to reduction/controll of your simple carbs/sugars In such items as sugared soda/sweet tea along with fruit juices(containing natural sugar) even if no added sugar is added. LDL cholesterol is reduced with reducing daily intake of fats and polo. saturated fats. The monosaturated fats like olive oil are not harmful except in the calories they contained. Whole milk cheese needs to be remembered along with whole milk products And limited. Assessment & Plan (03/02/2019 3:40 PM CDT): Jon meds and check in jun Assessment & Plan (09/18/2018 11:15 AM CDT): ldl at 163 and strt low dose atorvastin 10 and take 1/2 a dayYour cholesterol in the form of ldl (bad) cholesterol,hdl(good) cholesterol and triglycerides are monitored. The triglycerides respond to reduction/controll of your simple carbs/sugars In such items as sugared soda/sweet tea along with fruit juices(containing natural sugar) even if no added sugar is added. LDL cholesterol is reduced with reducing daily intake of fats and polo. saturated fats. The monosaturated fats like olive oil are not harmful except in the calories they contained. Whole milk cheese needs to be remembered along with whole milk products And limited. Assessment & Plan (10/09/2017 10:31 AM CDT): ldl at 130 and at edge and work to get lowerYour cholesterol in the form of ldl (bad) cholesterol,hdl(good) cholesterol and triglycerides are monitored. The triglycerides respond to reduction/controll of your simple carbs/sugars In such items as sugared soda/sweet tea along with fruit juices(containing natural sugar) even if no added sugar is added. LDL cholesterol is reduced with reducing daily intake of fats and polo. saturated fats. The monosaturated fats like olive oil are not harmful except in the calories they contained. Whole milk cheese needs to be remembered along with whole milk products And limited. Assessment & Plan (04/11/2017 11:14 AM COLOR PRINTER OPERATOR): Check on reutrn Assessment & Plan (02/06/2017 10:56 AM CDT): ldl at 120 and less then 130 nl so good and no chagesYour cholesterol in the form of ldl (bad) cholesterol,hdl(good) cholesterol and triglycerides are monitored. The triglycerides respond to reduction/controll of your simple carbs/sugars In such items as sugared soda/sweet tea along with fruit juices(containing natural sugar) even if no added sugar is added. LDL cholesterol is reduced with reducing daily intake of fats and polo. saturated fats. The monosaturated fats like olive oil are not harmful except in the calories they contained. Whole milk cheese needs to be remembered along with whole milk products And limited. B12 deficiency 08/24/2013 Overview (09/06/2016): B12 deficiency Assessment & Plan (09/20/2021 10:10 AM CDT): Stay on and check Assessment & Plan (05/11/2021 9:17 AM COLOR PRINTER OPERATOR): Stay same dose as 1100 Assessment & Plan (11/09/2020 10:06 AM CDT): Check on reutrn Assessment & Plan (09/18/2018 11:18 AM CDT): b12 and cont med and check with nov Assessment & Plan (10/09/2017 10:31 AM CDT): b12 lev els nl. No changs Assessment & Plan (04/11/2017 11:13 AM COLOR PRINTER OPERATOR): Check on return Resolved Problems Problem Noted Date Diagnosed Date Resolved Date Encounter for screening colonoscopy 05/13/2023 06/16/2023 Encounter for screening colonoscopy 05/13/2023 10/24/2023 Acute pain of left shoulder 09/26/2022 02/14/2023 Assessment & Plan (09/26/2022 1:05 PM CDT): Ordered x-ray Alternate ice and heat at 20 minute intervals OTC Tylenol 650 mg with OTC Ibuprofen 400 mg every 8 hours prn for pain Class 1 obesity with body ma ss index (BMI) of 31.0 to 31.9 in adult 05/24/2020 02/14/2023 Assessment & Plan (01/24/2022 8:05 AM CDT): She was counseled on the importance of maintaining a healthy weight and the risks of obesity. Weight loss recommended. Assessment & Plan (09/20/2021 10:11 AM CDT): wr down and keep off and keep sropping Assessment & Plan (05/11/2021 9:18 AM COLOR PRINTER OPERATOR): Morbid obesity is a bmi of 40 or more. Targeted weight loss with portion controll(calorie restriction) ,increased basal activity Levels along with adding an exercise program to lead to gradual weight loss,.Any program of change from weight watchers. To nutra system along with others work. Assessment & Plan (11/09/2020 10:03 AM CDT): [facility] work to d orp Assessment & Plan (05/24/2020 4:12 PM COLOR PRINTER OPERATOR): Work to sandra wt Pre-op evaluation 03/02/2019 05/24/2020 Assessment & Plan (03/02/2019 3:29 PM CDT): Elective l knee replacement for pain. Setup for oct surg. Risk of age , 63. Wt bmi 35 . Lipids controoled and bp control. Do not see risk out of line or anything beedd to adjsut pre op for surg and aapprove surg l knee. Pure hypercholesterolemia 09/18/2018 Assessment & Plan (09/18/2018 11:14 AM CDT): ldl at 163 and dad with mi and dieid. Start atorvastin 10 and take 1/2 at most daily and recheck onreturn. Your cholesterol in the form of ldl (bad) cholesterol,hdl(good) cholesterol and triglycerides are monitored. The triglycerides respond to reduction/controll of your simple carbs/sugars In such items as sugared soda/sweet tea along with fruit juices(containing natural sugar) even if no added sugar is added. LDL cholesterol is reduced with reducing daily intake of fats and polo. saturated fats. The monosaturated fats like olive oil are not harmful except in the calories they contained. Whole milk cheese needs to be remembered along with whole milk products And limited. Preop exam for internal medicine 02/11/2018 05/24/2020 Assessment & Plan (03/02/2019 3:32 PM CDT): Pre op for l knee. htn lipids. bmi 35. Knee limits activtiy and painful screens nl with a1c 5.0. k though 3.2 . Prior such came up to nl with 10 meq a day Will do and check on monnd Assessment & Plan (02/11/2018 10:19 AM CDT): Pt was advised to continue current therapy and medications for chronic conditions as previously as advised. Continue with healthy dietary management as well. Pt offered no additional complaints today in office. Preoperative medical clearance: Pt is medically stable and aware there are risk associated with surgery and anesthesia. He states the surgeon has reviewed these risk in detail with patient, and wishes to proceed with surgery. They are medically cleared for surgery at this time. She has preoperative labs as well as EKG scheduled for 02/24/2018 per surgeon's recommendations and scheduling for further clearance.. Pt was instructed to contact the office with absolutely any changes prior to and post surgery. We will see them back here as scheduled, or certainly sooner as needed. Knee strain, left, initial encounter 10/09/2017 10/25/2022 Assessment & Plan (10/09/2017 10:31 AM CDT): Joint line tenderness. Referral to ortho. Consider pt referral to start given time to see ortho IGT (impaired glucose tolerance) 10/09/2017 10/25/2022 Assessment & Plan (09/20/2021 10:13 AM CDT): Fasting 97 Assessment & Plan (11/09/2020 10:03 AM CDT): a1c at 5.2 and nl and watch Assessment & Plan (05/24/2020 4:08 PM COLOR PRINTER OPERATOR): fbs 98 and cehc a1c on reutrn Assessment & Plan (07/03/2019 9:39 AM COLOR PRINTER OPERATOR): a1c at 5.4 and 5.6 upper nl Assessment & Plan (03/02/2019 3:40 PM CDT): Check a1c on rturn Assessment & Plan (10/09/2017 10:38 AM CDT): Check on return but nl now Immunizations Immunization Administration Dates Next Due Influenza, Quadrivalent, Blaire l Culture-based MDCK, Preservative Free, Antibiotic Free, Intramuscular 05/03/2022 Influenza, Quadrivalent, Hig h Dose, Preservative Free, Intrr 06/17/2023 Influenza, Quadrivalent, Spl it, Preservative Free, Intramuscular 05/11/2021,05/24/2020,04/11/2018 Influenza, Trivalent, High D ose, Split, Preservative Free, Intramuscular 03/05/2024,03/05/2024(Deferred: Patient Refused) Influenza, Unspecified 03/04/2019(Deferr ed: Patient Refused),03/03/2019,02/20/2016, 016,12/27/2014,06/07/2014,11/23/2013,0 06/15/2013 Convercent (J&J) SARS-CoV-2 Vaccination 08/05/2020 Pneumococcal Conjugate Pcv20 01/24/2022 ZOSTER LIVE 05/02/2017, 7,02/20/2016,07/04,12/27/2014 Social History Tobacco Use Types Packs/Day Years Used Date Smoking Tobacco: Never Smokeless Tobacco: Never Tobacco Cessation:Counseling Given: Not Answered Alcohol Use Standard Drinks/Week Comments Yes 0 (1 standard drink = 0.6 oz pur e alcohol) weekends AUDIT-C Answer Date Recorded Q1: How often do you have a drink containing alc ohol? 2-4 times a month 09/03/2024 Q2: How many drinks containi ng alcohol do you have on a typical day when you are drinking? 1 or 2 09/03/2024 Q3: How often do you have si x or more drinks on one occasion? Never 09/03/2024 PHQ-2 Answer Date Recorded PHQ-2 Total Score (If total score is 3 or more points, staff should administer the PHQ-9) 0 09/03/2024 Personal Safety Answer Date Recorded Have you ever been in or are you currently in a harmful physical or emotional relationship or is someone making you feel afraid or unsafe? 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 Gender Identity Not on file Sexual Orientation Not on file Last Filed Vital Signs Vital Sign Reading Time Taken Comments Blood Pressure 120/72 09/03/2024 9:33 AM CDT Pulse 77 09/03/2024 9:33 AM CDT Temperature 37 C (98.6 F) 09/03/2024 9:33 AM CDT Respiratory Rate 16 09/03/2024 9:33 AM CDT Oxygen Saturation 96% 09/03/2024 9:33 AM CDT Inhaled Oxygen Concentration - - Weight 96.5 kg (212 lb 12.8 oz) 09/03/2024 9:33 AM CDT Height 165.1 cm (5' 5) 09/03/2024 9:33 AM CDT Body Mass Index 35.41 09/03/2024 9:33 AM CDT Plan of Treatment Not on file Medical Devices Implanted Type Area Director Adult Device Identifier Shelf Expiration Date Model / Serial / Lot [employer] [id number] Attune 6mm Cruciate Retaining Rotate Platform Knee 5 Insert - [id number] Implanted:Qty: 1 on 03/11/2019 by Fadi Feliciano MD at [facility] Left: Knee [employer] 10/01/2023 [id number] / / [id number] [employer] [id number] Attune Cruciate Retain Cementless Knee Left 5 Component Femoral - [id number] Implanted:Qty: 1 on 03/11/2019 by Fadi Feliciano MD at [facility] Left: Knee [employer] 01/01/2028 [id number] / / [id number] [employer] [id number] Attune Cementless Rotate Platform Knee 5 Baseplate Tibial - [id number] Implanted:Qty: 1 on 03/11/2019 by Fadi Feliciano MD at [facility] Left: Knee [employer] 12/01/2027 [id number] / / [id number] Procedures Procedure Name Priority Date/Time Associated Diagnosis Comments COLONOSCOPY 04/16/2024 7:10 AM COLOR PRINTER OPERATOR SCREENING MAMMOGRAM W KAI Schedule Routine, Read Routine (OP Routine) 09/18/2023 DEXA AXIAL SKELETON BONE DENSITY 1 OR MORE SITES Schedule Routine, Read Routine (OP Routine) 05/04/2021 2:07 PM COLOR PRINTER OPERATOR Post-menopause HEPATITIS C AB REFLEX RNA QUANT PCR Routine 01/25/2017 8:00 AM CDT from Last 3 Months or Most Recently Relevant to Health Maintenance Results * Colonoscopy (04/16/2024 7:10 AM COLOR PRINTER OPERATOR) Anatomical Region Laterality Modality Other Narrative Procedure Note Rony Sullivan MD - 04/16/2024 7:10 AM CST [facility] Patient Name: Ruby Hines Procedure Date: 04/16/2024 7:10 AM Date of : 1955 Admit Type: Outpatient Age: 68 Gender: Female Attending MD: Rony Sullivan M.D. Room: [facility] ENDOSCOPY ROOM 2 Note Status: Finalized Patient Profile: This is a 68 year old female history of HTN, HLD, obesity, hypothyroidism, breast cancer here forcolon cancer screening. Last colonoscopy 2006 showed hemorrhoids otherwise normal. No family history of colon cancer. Procedure: Colonoscopy Indications: Screening for colorectal malignant neoplasm, Last colonoscopy: April 2007 Referring MD: Alirio Delcid PA-C Providers: Rony Sullivan M.D. Impression: - Perianal skin tags found on perianal exam. - One 3 mm polyp in the transverse colon, removedwith a cold snare. Resected and retrieved. - External and internal hemorrhoids. Recommendation: - Patient has a contact number available for emergencies. The signs and symptoms of potential delayed complications were discussed with thepatient. Return to normal activities tomorrow. Written discharge instructions were provided to thepatient. - Discharge patient to home (with escort). - Resume previous diet. - Continue present medications. - Await pathology results. - Repeat colonoscopy in 7-10 years for surveillance based on pathology results. - Return to referring physician as previously scheduled. Medicines: Monitored Anesthesia Care Complications: No immediate complications. Estimated Blood Loss: Estimated blood loss was minimal. Procedure: Pre-Anesthesia Assessment: - Prior to the procedure, a History and Physicalwas performed, and patient medications and allergieswere reviewed. The patient is competent. The risks and benefits of the procedure and the sedation optionsand risks were discussed with the patient. Allquestions were answered and informed consent was obtained. Patient identification and proposed procedure were verified by the physician, the plodding machine operator and the cardiopulmonary technician in the endoscopy suite. Mental Status Examination: alert and oriented. Prophylactic Antibiotics: The patient does not requireprophylactic antibiotics. Prior Anticoagulants: The patient has taken no anticoagulant or antiplatelet agents.After reviewing the risks and benefits, the patient was deemed in satisfactory condition to undergo the procedure. The anesthesia plan was to use monitored anesthesia care (MAC). Immediately prior to administration of medications, the patient was re-assessed for adequacy to receive sedatives. The heart rate, respiratory rate, oxygen saturations, blood pressure, adequacy of pulmonary ventilation,and response to care were monitored throughout the procedure. The physical status of the patient was re-assessed after the procedure. The benefits, risks and alternatives of theprocedure and sedation were discussed and informed consentwas obtained. All questions were answered. Please referto the signed informed consent document in the medical record. The bowel preparation used was Miralax via split dose instruction. The bowel preparation usedwas bisacodyl tablets via split dose instruction. The scope was passed under direct vision. TheColonoscope [id number] was introduced through the anus and advanced to the the cecum, identified by appendiceal orifice and ileocecal valve. The colonoscopy was performed without difficulty. The patient tolerated the procedure well. The qualityof the bowel preparation was excellent. Bowel prep was administered using a split dose. Findings: Skin tags were found on perianal exam. A 3 mm polyp was found in the transverse colon. The polyp was flat.The polyp was removed with a cold snare. Resection and retrieval were complete. External and internal hemorrhoids were found during retroflexion. Rony Sullivan M.D. 04/16/2024 8:29:48 AM Number of Addenda: 0 Note Initiated On: 04/16/2024 7:10 AM Procedure Code(s): --- Professional --- 00087, Colonoscopy, flexible; with removal of tumor(s), polyp(s), or other lesion(s) by snare technique --- Technical --- 62763, Colonoscopy, flexible; with removal of tumor(s), polyp(s), or other lesion(s) by snare technique Diagnosis Code(s): --- Professional --- Z12.11, Encounter for screening for malignant neoplasm of colon D12.3, Benign neoplasm of transverse colon (hepatic flexure orsplenic flexure) K64.8, Other hemorrhoids K64.4, Residual hemorrhoidal skin tags --- Technical --- Z12.11, Encounter for screening for malignant neoplasm of colon D12.3, Benign neoplasm of transverse colon (hepatic flexure orsplenic flexure) K64.8, Other hemorrhoids K64.4, Residual hemorrhoidal skin tags CPT copyright 2020 [employer]. All rights reserved. The codes documented in this report are preliminary and upon inpatient coder reviewmay be revised to meet current compliance requirements. Recognized by the [place] [employer] for promoting quality in endoscopy Rony Sullivan MD ENDOSCOPY PROCEDURES Final Resul t * Screening Mammogram W Kai (09/18/2023) Anatomical Region Laterality Modality Breast N/A Mammography Historical Provider IMG MAMMO PROCEDURES Inna l Result * Dexa Axial Skeleton Bone Density 1 or 2 Site (05/04/2021 2:07 PM COLOR PRINTER OPERATOR) Anatomical Region Laterality Modality Body N/A Other 05/04/2021 2:10 PM COLOR PRINTER OPERATOR Narrative 05/05/2021 8:46 AM COLOR PRINTER OPERATOR EXAM DESCRIPTION: DEXA AXIAL SKELETON BONE DENSITY 1 OR MORE SITES REASON FOR STUDY: Post-menopausal female, screening for osteoporosis. Director Adult/Model: [employer] Discovery SL (S/N [id number]) CLINICAL INFORMATION: Current height: 65 inches Maximum height: 65 inches Weight: 198 pounds Risk factors: Rheumatoid arthritis COMPARISON: None available. FINDINGS: AP LUMBAR SPINE L1-L4: Total BMD is 1.051 g/cm2 T-score is 0.0 LEFT HIP: Total BMD is 1.030 g/cm2 T-score is 0.7 Femoral neck BMD is 0.833 g/cm2 T-score is -0.1 IMPRESSION: Normal bone mineral density by WHO criteria. REFERENCE: Bone mineral density: Normal (T-score above or = -1.0) Low bone mass (T-score between -1.0 and -2.5) replaces the previously used term osteopenia Osteoporosis (T-score = or below -2.5) Medical evaluation for secondary causes of low bone mineral density may be appropriate. FRAX is a World Health Organization validated fracture risk assessment tool that calculates a person's 10 year probability of a major osteoporosis related fracture and hip fracture. According to the National Osteoporosis Foundation guidelines, postmenopausal women and men age 50 or older with low bone mass and a 10 year probability of a major osteoporosis related fracture = or greater than 20% or a 10 year probability of a hip fracture = or greater than 3% should be considered for treatment. For further information, including treatment recommendations, please refer to the 2013 ISCD Official Positions (http://www.iscd.org) and the NOF's Clinician's Guide to Prevention and Treatment of Osteoporosis (http://www.nof.org/professionals/clinical-guidelines) THIS IS AN ELECTRONICALLY VERIFIED FINAL REPORT 05/05/2021 8:46 AM - Electronically signed by Campbell Hazel M.D. AB: Report ID: [id number] Reading Location: [place] [address] Procedure Note Campbell Hazel MD - 05/05/2021 EXAM DESCRIPTION: DEXA AXIAL SKELETON BONE DENSITY 1 OR MORE SITES REASON FOR STUDY: Post-menopausal female, screening for osteoporosis. Director Adult/Model: [employer] Discovery SL (S/N [id number]) CLINICAL INFORMATION: Current height: 65 inches Maximum height: 65 inches Weight: 198 pounds Risk factors: Rheumatoid arthritis COMPARISON: None available. FINDINGS: AP LUMBAR SPINE L1-L4: Total BMD is 1.051 g/cm2 T-score is 0.0 LEFT HIP: Total BMD is 1.030 g/cm2 T-score is 0.7 Femoral neck BMD is 0.833 g/cm2 T-score is -0.1 IMPRESSION: Normal bone mineral density by WHO criteria. REFERENCE: Bone mineral density: Normal (T-score above or = -1.0) Low bone mass (T-score between -1.0 and -2.5) replaces thepreviously used term osteopenia Osteoporosis (T-score = or below -2.5) Medical evaluation for secondary causes of low bone mineral density may be appropriate. FRAX is a World Health Organization validated fracture risk assessmenttool that calculates a person's 10 year probability of a major osteoporosisrelated fracture and hip fracture. According to the National OsteoporosisFoundation guidelines, postmenopausal women and men age 50 or older with low bonemass and a 10 year probability of a major osteoporosis related fracture = or greater than 20% or a 10 year probability of a hip fracture = or greaterthan 3% should be considered for treatment. For further information, including treatment recommendations, please referto the 2013 ISCD Official Positions (http://www.iscd.org) and the NOF's Clinician's Guide to Prevention and Treatment of Osteoporosis (http://www.nof.org/professionals/clinical-guidelines) THIS IS AN ELECTRONICALLY VERIFIED FINAL REPORT 05/05/2021 8:46 AM - Electronically signed by Campbell Hazel M.D. AB: Report ID: [id number] Reading Location: [id number] Fadi Thomas MD IMG DXA PROCEDURES Final Result * Hepatitis C Antibody Reflex Hepatitis C RNA Quantitative PCR (01/25/2017 8:00 AM CDT) Hep C Ab Negative Negative [facility] Blood specimen (specimen) 01/25/2017 8:00 AM CDT 01/25/2017 2:12 PM CDT Fadi Thomas MD LAB MICROBI OLOGY - GENERAL ORDERABLES Edited Result - Final [facility] [id number] [place] [address] from Last 3 Months or Most Recently Relevant to Health Maintenance Insurance [employer] MEDICARE [employer] [facility] AET MEDICARE [facility] MEDICARE Advance Directives For more information, please contact: [phone] * Full Code (Latest Code Status on File) Date Activated Date Inactivated Comments 04/16/2024 7:13 AM 04/16/2024 1:24 PM * Full Code Date Activated Date Inactivated Comments 04/16/2024 7:13 AM 04/16/2024 7:13 AM * Full Code Date Activated Date Inactivated Comments 03/11/2019 2:16 PM 03/12/2019 9:35 PM Care Teams Medical Record Retrieval Specialist Relationship Specialty Start Date End Date Alirio Delcid PA [address] [place], [place] [address] PCP - General Internal Medicine 02/01/22
--- OUTSIDE RECORDS SUMMARY | 2024-12-16 08:03 | XMS_ITS | Encounter Summary ---
Author Organization [facility] Address [address] [place] [address] Phone Care Team Providers Care It Application Administrator Name Role Phone Fadi Thomas MD Primary Care Provi carol Yesenia Miranda PT Unavailable Unavailable Lucinda Dao TRUCK LOADER AND UNLOADER Unavailable Unavailable Fadi Vick DO Unavailable Alirio Delcid Primary Care Provider Encounter Details Date Type Department Care Team (Late st Contact Info) Description 09/25/2017 Orders Only [facility] ProviderGinny MD [address] [place] [id number] Social History Tobacco Use Types Packs/Day Years Used Date Smoking Tobacco: Never Smokeless Tobacco: Never Alcohol Use Standard Drinks/Week Comments Yes 0 (1 standard drink = 0.6 oz pur e alcohol) Comments Unknown Sex and Gender Information Value Date Recorded Sex Assigned at Not on file 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 us Historical Provider LAB BLOOD ORDERABLES Inna l Result documented in this encounter Visit Diagnoses Not on filedocumented in this encounter Care Teams It Application Administrator Relationship Specialty Start Date End Date Fadi Thomas MD PCP - General 08/31/16 01/31/22 Alirio Delcid PA [address] [place] [address] [address] [place] [id number] PCP - General Internal Medicine 02/01/22 Yesenia Miranda, PT Physical Therapist Physical Therapy 10/15/17 10/23/23 Lucinda Dao, TRUCK LOADER AND UNLOADER Computational Chemist Physical Therapy 10/22/17 10/23/23 Fadi Vick DO [address] [place] [id number] Medical Oncologist/Reject Opener And Filler Hematology and Oncology 04/30/18 10/23/23 documented as of this encounter
--- OUTSIDE RECORDS SUMMARY | 2024-12-16 08:03 | XMS_ITS | Clinical Summary ---
Author Organization [facility] Building [address] Address [address] [place] [address] Care Team Providers Care Grinder And Plater Name Role Phone Alirio Delcid Primary Care Provider Allergies No known active allergies Medications loratadine [...] sprays into each nostril daily 16 g 11 06/17/19 24 025 Discontinued Active Problems Problem [...] and not Helping and refer back to qlikview developer and se what they can offer and find and then they can refer if no help or we can Assessment & Plan (05/24/2020 4:11 PM SUPERVISING FIRE MARSHAL): On ditropan and not seemingly helping much [...] retrurn Assessment & Plan (07/03/2019 9:42 AM SUPERVISING FIRE MARSHAL): Will order cologouard given recent knee surg and increased risk from it Hypokalemia 03/02/2019 Assessment & Plan (05/11/2021 9:18 AM SUPERVISING FIRE MARSHAL): k 3.,6 and shold drif uop a [...] (02/18/2019): Added automatically from request for surgery [id number] Arthralgia of left knee 02/11/2018 Assessment & Plan (02/11/2018 10:17 AM CDT): Continue to see orthopedist for injections and further management. Reinforced avoiding use of any NSAIDs 1 week prior to surgery History of left breast cancer 01/23/2018 Cancer Staging:Clinical stage from 04/05/2011:Stage IIIA(cT1c, cN2a, cM0, G2, ER: Positive, MA: Negative, HER2: Negative) - Unsigned Assessment & Plan (11/09/2020 10:04 AM CDT): Active rx abd see;s ibic fir Acquired hypothyroidism 04/11/2017 Assessment & Plan (09/20/2021 10:10 AM CDT): Keep meds same and check tsh on return with well exam Assessment & Plan (05/11/2021 9:17 AM SUPERVISING FIRE MARSHAL): tsh on return and keep meds samew Assessment & Plan (11/09/2020 10:03 AM CDT): tsh at 1.3 and keep thyroid dose the same check yr'ly Assessment & Plan (05/24/2020 4:08 PM SUPERVISING FIRE MARSHAL): chec tsh on reutrn Assessment & Plan (07/03/2019 9:34 AM SUPERVISING FIRE MARSHAL): Check thyroid on return Assessment & Plan [...] yr'ly. Assessment & Plan (04/11/2017 11:14 AM SUPERVISING FIRE MARSHAL): Check on return Hair loss 04/11/2017 Assessment & Plan (04/11/2017 11:19 AM SUPERVISING FIRE MARSHAL): Low thyroid can do but last ws nl and saroj not expect it to drop on meds. Breast cancer rx and supression can play a role and check with onc bout. The otc supplement shodlnot be issue and some find them helpful. Would not see thme interacting in tamoxifen but can bring Product in to review wit me oronc. Environmental and seasonal allergies 02/06/2017 Assessment & [...] hypertension. Assessment & Plan (06/16/2023 2:44 PM SUPERVISING FIRE MARSHAL): Recommend DASH diet, heart-healthy lifestyle, exercise. Discussed the risks of hypertension. Assessment & Plan (02/14/2023 7:14 AM CDT): Recommend DASH diet, heart healthy lifestyle, exercise. Discussed the risks of hypertension. Assessment & Plan (10/25/2022 7:16 AM CDT): Recommend DASH diet, heart healthy lifestyle, exercise. Discussed the risks of hypertension. Assessment & Plan (06/27/2022 8:03 AM SUPERVISING FIRE MARSHAL): Recommend DASH diet, heart-healthy lifestyle, exercise. Discussed [...] bp. Assessment & Plan (05/11/2021 9:14 AM SUPERVISING FIRE MARSHAL): bp on high side serialy with k [...] bp. Assessment & Plan (05/24/2020 4:07 PM SUPERVISING FIRE MARSHAL): bp b abdi and sandra see if [...] hypertension. Assessment & Plan (07/03/2019 9:37 AM SUPERVISING FIRE MARSHAL): The bp on upper limits of nl [...] bp. Assessment & Plan (04/11/2017 11:13 AM SUPERVISING FIRE MARSHAL): The bp drooped with meds. Potassium good [...] limited. Assessment & Plan (05/11/2021 9:15 AM SUPERVISING FIRE MARSHAL): ldl back down to 70 and great. [...] limited. Assessment & Plan (05/24/2020 4:07 PM SUPERVISING FIRE MARSHAL): ldl at 69 and good for nwo [...] limited. Assessment & Plan (07/03/2019 9:38 AM SUPERVISING FIRE MARSHAL): ldl at 100 and cont meds as [...] PM CDT): Jon meds and check in carla Assessment & Plan (09/18/2018 11:15 AM CDT): [...] limited. Assessment & Plan (04/11/2017 11:14 AM SUPERVISING FIRE MARSHAL): Check on reutrn Assessment & Plan (02/06/2017 [...] check Assessment & Plan (05/11/2021 9:17 AM SUPERVISING FIRE MARSHAL): Stay same dose as 1100 Assessment & Plan (11/09/2020 10:06 AM CDT): Check on reutrn Assessment & Plan (09/18/2018 11:18 AM CDT): b12 and cont med and check with nov Assessment & Plan (10/09/2017 10:31 AM CDT): b12 lev els nl. No changs Assessment & Plan (04/11/2017 11:13 AM SUPERVISING FIRE MARSHAL): Check on return Resolved Problems Problem Noted [...] sropping Assessment & Plan (05/11/2021 9:18 AM SUPERVISING FIRE MARSHAL): Morbid obesity is a bmi of 40 or more. Targeted weight loss with portion controll(calorie restriction) ,increased basal activity Levels along with adding an exercise program to lead to gradual weight loss,.Any program of change from weight watchers. To nutra system along with others work. 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 Assessment & Plan (05/24/2020 4:12 PM SUPERVISING FIRE MARSHAL): Work to sandra wt Pre-op evaluation 03/02/2019 [...] a day Will do and check on Assessment & Plan (02/11/2018 10:19 AM CDT): [...] watch Assessment & Plan (05/24/2020 4:08 PM SUPERVISING FIRE MARSHAL): fbs 98 and cehc a1c on reutrn Assessment & Plan (07/03/2019 9:39 AM SUPERVISING FIRE MARSHAL): a1c at 5.4 and 5.6 upper nl Assessment & Plan (03/02/2019 3:40 PM CDT): Check a1c on rturn Assessment & Plan (10/09/2017 10:38 AM CDT): Check on return but nl now Encounters Date Type Department Care Team Description 10/16/2024 2:30 PM CDT Office Visit [facility] [address] [facility] [address] [place] [address] Darlin Sierra MD Trigger middle finger of left hand (Primary Dx) from Last 3 Months Immunizations Immunization Administration Dates Next Due Influenza, Quadrivalent, Blaire l Culture-based MDCK, Preservative Free, Antibiotic Free, Intramuscular 05/03/2022 Influenza, Quadrivalent, Hig h Dose, Preservative Free, Intrr 06/17/2023 Influenza, Quadrivalent, Spl it, Preservative Free, Intramuscular 05/11/2021,05/24/2020,04/11/2018 Influenza, Trivalent, High D ose, Split, Preservative Free, Intramuscular 03/05/2024,03/05/2024(Deferred: Patient Refused) Influenza, Unspecified 03/04/2019(Deferr ed: Patient Refused),03/03/2019,02/20/2016, 016,12/27/2014,06/07/2014,11/23/2013,0 06/15/2013 [employer] ([employer]) SARS-CoV-2 Vaccination 08/05/2020 Pneumococcal Conjugate Pcv20 01/24/2022 ZOSTER LIVE 05/02/2017, 7,02/20/2016,07/04,12/27/2014 Surgical History Surgery Date Site/Laterality Comments ELBOW SURGERY 06/03/2002 - 06/02/2003 Elbow Surgery HAND SURGERY 06/03/2004 - 06/02/2005 Hand Surgery OTHER SURGICAL HISTORY 06/03/2011 - 06/02/2012 left breast reconstruction with tissue front desk host and acellular dermal matrix 6 x 11cm MYOMECTOMY 06/03/2011 - 06/02/2012 Myomectomy OTHER SURGICAL HISTORY left breast/ cancer: Mastectomy OTHER SURGICAL HISTORY breast cancer 2010 OTHER SURGICAL HISTORY Implant transfer BREAST RECONSTRUCTION breast reconstruction MASTECTOMY Mastectomy, left breast COLONOSCOPY 04/03/2007 - 05/02/2007 BREAST BIOPSY BREAST LUMPECTOMY TRIGGER FINGER RELEASE Right CORRECTION HAMMER TOE Right BUNIONECTOMY Right JOINT REPLACEMENT March 2019 COLONOSCOPY 04/16/2024 Medical History Medical History Date Comments Hx Other Medical 01-Vision Impaired Teacher Hx Other Medical 02-Gastro Hx Other Medical 03-Orthopedist Hx Other Medical 04-Neurologist Hx Other Medical left breast 201 2 Hx Other Medical 2011 left breast/ ca ncer Hx Other Medical breast reconstr uction Hx Other Medical breast reconstr uctions Hypertension Hyperlipidemia GERD (gastroesophageal reflux disease) Irritable bowel syndrome Hypothyroidism PONV (postoperative nausea and vomiting) Arthritis 1993 Cancer (HCC) 2010 Family History Medical History Relation Name Comments COPD Father F Heart disease Father F Heart disease; Heart failure Father F Congestive hea rt failure; Hypertension Father F Hypertension; Cancer Mother M Cancer, unknown ; Lung cancer Mother M Cancer, lung; Relation Name Status Comments Father F (Age 72) Mother M Alive Social History Tobacco Use Types Packs/Day Years [...] on file Legal Sex Female 11:55 PM SUPERVISING FIRE MARSHAL Gender Identity Not on file Sexual Orientation Not on file Obstetrics History Last Filed Vital Signs Vital Sign Reading [...] 09/03/2024 9:33 AM CDT Plan of Treatment Health Maintenance Due Date Last Done Comments DTaP/Tdap/Td Vaccine (1 - Tdap) 1966 Zoster Vaccine (2 of 3) 06/27/2017 05/02/20 17, 08/20/2016, 02/20/2016, Additional history exists Osteoporosis Screening-Bone Density Scan 05/04/2023 05/04/2021 Covid-19 Vaccine (2 2023-2 5 season) 2024 08/05/2020 Breast Cancer Screening-Mammogram 09/17/2024 09/18/2023, 05/17/2022, 09/19/2020, Additional history exists Influenza Vaccine (#1) 2025 , 06/17/2023, 05/03/2022, Additional history exists Well Visit 65+ 03/05/2025 03/05/2024, 02/01, 01/24/2022, Additional history exists Depression Screening 09/03/2025 09/03/2024, 03/05/2024, 10/24/2023, Additional history exists Fall Risk Assessment 09/03/2025 09/03/2024, 03/05/2024, 10/24/2023, Additional history exists Colon Cancer Screening-DNA Stool 04/16/2027 04/16/2024, 10/15/2019, 04/08/2007, Additional history exists Colon Cancer Screening-Colonoscopy 04/16/2031 04/16/2024, 04/08/2007, 04/08/2007 Hepatitis C Screening Completed 01/25/2017, 017 Pneumococcal vaccine 65+ Completed 01/24/2022 Hepatitis B Screening Completed 02/20/2024 Medical Devices Implanted Type Area Lokie Engineer Device Identifier Shelf Expiration Date Model / Serial / Lot [employer] [id number] Attune 6mm Cruciate Retaining Rotate Platform Knee 5 Insert - [id number] Implanted:Qty: 1 on 03/11/2019 by Fadi Feliciano MD at [facility] Left: Knee [employer] 10/01/2023 [id number] / / [id number] [employer] [id number] Attune Cruciate Retain Cementless Knee Left 5 Component Femoral - [id number] Implanted:Qty: 1 on 03/11/2019 by Fadi Feliciano MD at [facility] Left: Knee [employer] 01/01/2028 [id number] / / [id number] [employer] [id number] Attune Cementless Rotate Platform Knee 5 Baseplate Tibial - [id number] Implanted:Qty: 1 on 03/11/2019 by Fadi Feliciano MD at [facility] Left: Knee [employer] 12/01/2027 [id number] / / [id number] Procedures Procedure Name Priority Date/Time Associated Diagnosis Comments COLONOSCOPY 04/16/2024 7:10 AM SUPERVISING FIRE MARSHAL SCREENING MAMMOGRAM W KAI Schedule Routine, Read Routine (OP Routine) 09/18/2023 DEXA AXIAL SKELETON BONE DENSITY 1 OR MORE SITES Schedule Routine, Read Routine (OP Routine) 05/04/2021 2:07 PM SUPERVISING FIRE MARSHAL Post-menopause HEPATITIS C AB REFLEX RNA QUANT PCR Routine 01/25/2017 8:00 AM CDT from Last 3 Months or Most Recently Relevant to Health Maintenance Results * Colonoscopy (04/16/2024 7:10 AM SUPERVISING FIRE MARSHAL) Anatomical Region Laterality Modality Other Narrative Procedure Note Rony Sullivan MD - 04/16/2024 7:10 AM CST [facility] Patient Name: Ruby Hines Procedure Date: 04/16/2024 7:10 AM Date of : 1955 Admit Type: Outpatient Age: 68 Gender: Female Attending MD: Rony Sullivan M.D. Room: [facility] ENDOSCOPY ROOM 2 Note Status: Finalized Patient [...] procedure were verified by the physician, the tail end rider and the health technician in the endoscopy suite. Mental Status [...] scope was passed under direct vision. TheColonoscope [id number] was introduced through the anus and advanced [...] 7:10 AM Procedure Code(s): --- Professional --- 29054, Colonoscopy, flexible; with removal of tumor(s), polyp(s), or other lesion(s) by snare technique --- Technical --- 84562, Colonoscopy, flexible; with removal of tumor(s), polyp(s), [...] Residual hemorrhoidal skin tags CPT copyright 2020 [employer]. All rights reserved. The codes documented in this report are preliminary and upon carding machine feeder reviewmay be revised to meet current compliance requirements. Recognized by the [employer] for promoting quality in endoscopy Rony Sullivan MD ENDOSCOPY PROCEDURES Final Resul t * Screening Mammogram W Kai (09/18/2023) Anatomical Region Laterality Modality Breast N/A Mammography Historical Provider IMG MAMMO PROCEDURES Inna l Result * Dexa Axial Skeleton Bone Density 1 or 2 Site (05/04/2021 2:07 PM SUPERVISING FIRE MARSHAL) Anatomical Region Laterality Modality Body N/A Other 05/04/2021 2:10 PM SUPERVISING FIRE MARSHAL Narrative 05/05/2021 8:46 AM SUPERVISING FIRE MARSHAL EXAM DESCRIPTION: DEXA AXIAL SKELETON BONE DENSITY 1 OR MORE SITES REASON FOR STUDY: Post-menopausal female, screening for osteoporosis. Lokie Engineer/Model: YellowSchedule (S/N [id number]) CLINICAL INFORMATION: Current height: 65 inches Maximum [...] by Campbell Hazel M.D. AB: Report ID: [id number] Reading Location: [id number] Procedure Note Campbell Hazel MD - 05/05/2021 EXAM DESCRIPTION: DEXA AXIAL SKELETON BONE DENSITY 1 OR MORE SITES REASON FOR STUDY: Post-menopausal female, screening for osteoporosis. Lokie Engineer/Model: [employer] SL (S/N [id number]) CLINICAL INFORMATION: Current height: 65 inches Maximum [...] Electronically signed by Campbell Hazel M.D. AB: AB Report ID: [id number] Reading Location: [place] [address] [place] Fadi Thomas MD IMG DXA PROCEDURES Final Result * Hepatitis C Antibody Reflex Hepatitis C RNA Quantitative PCR (01/25/2017 8:00 AM CDT) Hep C Ab Negative Negative [facility] Blood specimen (specimen) 01/25/2017 8:00 AM CDT 01/25/2017 2:12 PM CDT us Fadi Thomas MD LAB MICROBI OLOGY - GENERAL ORDERABLES Edited Result - Final [facility] [id number] [place] [address] from Last 3 Months or Most Recently Relevant to Health Maintenance Insurance [employer] [facility] AETNA MEDICARE AETNA MEDICARE Advance Directives For more information, please contact: [phone] * Full Code (Latest Code Status on File) Date Activated Date Inactivated Comments 04/16/2024 7:13 AM 04/16/2024 1:24 PM * Full Code Date Activated Date Inactivated Comments 04/16/2024 7:13 AM 04/16/2024 7:13 AM * Full Code Date Activated Date Inactivated Comments 03/11/2019 2:16 PM 03/12/2019 9:35 PM Care Teams Grinder And Plater Relationship Specialty Start Date End Date Alirio Delcid PA [address] [facility] [facility] [address] [facility] [address] [place] [id number] PCP - General Internal Medicine 02/01/22
== END 2024-12-16 07:59 | disposition home or self-care (01) ==
LOC: ANHIMG 08:01
PROVIDERS: PCP Physician Assistant; Visit Provider Physician Assistant
DX: Z12.31 Encounter for screening mammogram for malignant neoplasm of breast (principal); Z90.12 Acquired absence of left breast and nipple
CPT/HCPCS: 77063; 77067